=== PATIENT | male | born 1990 | race Caucasian/White ===

== ENCOUNTER 2021-03-31 13:49 | Emergency (ER) | payer OTHER ==
[2021-03-31 14:24] LABS: BILIRUBIN NEGATIVE (NEGATIVE); BLOOD 3+ Ery/uL (NEGATIVE); CLARITY CLEAR (CLEAR); COLOR YELLOW (YELLOW); GLUCOSE (U) NORMAL (NORMAL); LEUKOCYTES NEGATIVE Leu/uL (NEGATIVE); NITRITE NEGATIVE (NEGATIVE); PROTEIN NEGATIVE (NEGATIVE); SPECIFIC GRAVITY 1.025 (1.001-1.030); UROBILINOGEN 0.2 mg/dL (0.2-1.0)
[2021-03-31 15:18] LABS: URINARY RBC TNTC
[2021-03-31] MEDS ORDERED: ONDANSETRON ODT4 MG PO (16:27)
[2021-03-31] MEDS ORDERED: HYDROCODON-ACE1 EAC2 PO (16:27)
[2021-03-31] MEDS ORDERED: FLOMAX 0.4 MG0.4 MG PO (16:27)
== END 2021-03-31 16:40 | disposition home or self-care (01) ==
LOC: FER 13:49
PROVIDERS: Emergency Medicine
DX: N13.2 Hydronephrosis with renal and ureteral calculous obstruction (principal); Z88.1 Allergy status to other antibiotic agents; Z98.890 Other specified postprocedural states
CPT/HCPCS: 81001

== ENCOUNTER 2022-01-14 13:10 | Emergency (ER) | payer OTHER ==
[~2022-01-14 13:10] MED LIST: FLOMAX 0.4 MG0.4 MG PO; HYDROCODON-ACE1 EAC2 PO; ONDANSETRON ODT4 MG PO
[2022-01-14 14:13] LABS: BASOPHIL 0.4 % (0-2); EOSINOPHIL 1.7 % (0-5); HCT 48.8 % (42.0-52.0); HGB 17.2 g/dl (13.2-18.0); LYMPHOCYTE 24.3 % (15-48); MCHC 35.2 g/dL (32.0-36.0); MCV 90.9 fL (78.0-100.0); MONOCYTE 8.7 % (0-12); MPV 11.9 fL (6.0-9.5); NEUTROPHIL 64.5 % (41-80); NRBC 0; PLT 193 K/uL (150-400); RBC 5.37 M/uL (4.70-6.00); RDW 12.6 % (11.5-14.0); WBC 7.9 K/uL (4.0-10.5)
[2022-01-14 14:18] LABS: BILIRUBIN NEGATIVE (NEGATIVE); BLOOD 3+ Ery/uL (NEGATIVE); CLARITY CLEAR (CLEAR); COLOR YELLOW (YELLOW); GLUCOSE (U) NORMAL (NORMAL); LEUKOCYTES NEGATIVE Leu/uL (NEGATIVE); NITRITE NEGATIVE (NEGATIVE); PROTEIN NEGATIVE (NEGATIVE); SPECIFIC GRAVITY 1.015 (1.001-1.030); UROBILINOGEN 0.2 mg/dL (0.2-1.0); pH 7.5 (5.0-9.0)
[2022-01-14 14:25] LABS: AMORPHOUS PHOSPHATE CRYSTALS MODERATE; URINARY RBC TNTC; URINARY WBC RARE
[2022-01-14 14:29] LABS: BUN/CREAT RATIO (CALC) 14.9 RATIO; CREATININE 1.01 mg/dL (0.67-1.17); POTASSIUM 4.4 mmol/L (3.5-5.1)
[2022-01-14] MEDS ORDERED: NORCO 5-325 TA1 EACH PO (15:39)
== END 2022-01-14 15:51 | disposition home or self-care (01) ==
LOC: FER 13:10
PROVIDERS: Nurse Practitioner Family
DX: N20.0 Calculus of kidney (principal); Z87.442 Personal history of urinary calculi; Z88.1 Allergy status to other antibiotic agents
CPT/HCPCS: 36415; 80048; 81001; 85025; J1885; J2405; J7030